=== PATIENT | male | born 1975 | race Caucasian/White ===

== ENCOUNTER 2017-09-06 17:23 | Emergency (ER) | payer MEDICARE ==
[~2017-09-06] VITALS: Ht 165.1 cm; Wt 81.6 kg
--- NOTE | 2017-09-06 18:21 | NUR ---
Patient discharged to home in stable conditon. Written and verbal after care instructions given with RX. Patient verbalizes understanding of instructions.
== END 2017-09-06 18:20 | disposition home or self-care (01) ==
LOC: ER 17:25
DX: L02.411 Cutaneous abscess of right axilla (principal); Z88.0 Allergy status to penicillin; F17.200 Nicotine dependence, unspecified, uncomplicated
CPT/HCPCS: A4663

== ENCOUNTER 2017-09-20 17:40 | Emergency (ER) | payer SELFPAY ==
[~2017-09-20] VITALS: Ht 162.6 cm; Wt 81.6 kg
[2017-09-20] MEDS ORDERED: HYDROXYZINE PAMOATE 25 MG CAPSULE PO ONE (19:00)
[2017-09-20] MEDS ORDERED: predniSONE 50 MG TABLET PO ONE (19:00)
[2017-09-20] MEDS ORDERED: CLINDAMYCIN HCL 150 MG CAPSULE PO ONE (19:00)
--- NOTE | 2017-09-20 19:00 | NUR ---
AOx4, c/o skin rashes for "months", pending MD evaluation & orders at this time.
--- NOTE | 2017-09-20 19:01 | NUR ---
LO THAPA at bedside for MSE.
--- NOTE | 2017-09-20 19:10 | NUR ---
REPORT TAKEN FROM RUDDY SMITH. ASSUMING PT CARE AT THIS TIME.
--- NOTE | 2017-09-20 19:19 | NUR ---
Patient discharged to home in stable conditon. Written and verbal after care instructions given. Patient verbalizes understanding of instructions. Ambulated from ER w/ steady gait. No distress noted. Pt took all personal belongings.
[2017-09-20 19:29] VITALS: BP 132/87
[2017-09-20] MEDS ORDERED: CLINDAMYCIN HCL 300 MG CAPSULE ONE (19:34)
[2017-09-20] MEDS ORDERED: predniSONE 50 MG TABLET ONE (19:34)
[2017-09-20] MEDS ORDERED: hydrOXYzine HCL 25 MG TABLET ONE (19:34)
== END 2017-09-20 19:22 | disposition home or self-care (01) ==
LOC: ER 17:41
DX: L73.9 Follicular disorder, unspecified (principal); B95.8 Unspecified staphylococcus as the cause of diseases classified elsewhere; Z88.0 Allergy status to penicillin; F17.200 Nicotine dependence, unspecified, uncomplicated
CPT/HCPCS: 99284; A4663; J7512